=== PATIENT | male | born 1975 | race Caucasian/White ===

== ENCOUNTER 2019-07-04 10:07 | Emergency (ER) | payer SELFPAY ==
--- NOTE | 2019-07-04 10:23 | EDM.PDOC ---
ED HPI GENERAL MEDICAL PROBLEM - General Chief Complaint: General Stated Complaint: MED CLEAR Time Seen by Provider: 07/04/19 10:19 Source of Information: Reports: Patient History Limitations: Reports: No Limitations - History of Present Illness INITIAL COMMENTS - FREE TEXT/NARRATIVE: HISTORY AND PHYSICAL: History of present illness: Patient is a 44-year-old male who presents to the emergency room with law enforcement with complaints of intermittent abdominal pain, hematuria and blood in his stools. He states he has noticed these symptoms on and off for the past several months. Today while in the custody of law enforcement he stated he was having some generalized abdominal pain and mentioned his previous concerns of the blood in his urine and stool and requested to come to the emergency room for evaluation. Patient is vague with his symptoms, frequency and if there are any associated symptoms. States he hasn't noticed any blood in his urine or stool recently - but "it is probably microscopic... a little bit in there". Patient denies any fever, chills, headache, change in vision, syncope or near syncope. Denies any chest pain, back pain, shortness of breath or cough. Denies any nausea, vomiting, diarrhea, constipation or dysuria. Denies any testicular pain, redness or swelling. Patient has been eating and drinking appropriately. Denies any alcohol or drug abuse. Denies any excessive use of OTC medications. Review of systems: As per history of present illness and below otherwise all systems reviewed and negative. Past medical history: As per history of present illness and as reviewed below otherwise noncontributory. Surgical history: As per history of present illness and as reviewed below otherwise noncontributory. Social history: See social history for further information Family history: As per history of present illness and as reviewed below otherwise noncontributory. Physical exam: General: Well-developed and well-nourished 44-year-old male. Alert and oriented. Nontoxic-appearing and in no acute distress. HEENT: Atraumatic, normocephalic, pupils equal and reactive bilaterally, negative for conjunctival pallor or scleral icterus, mucous membranes moist, throat clear, neck supple, nontender, trachea midline. No drooling or trismus noted. No meningeal signs. No hot potato voice noted. Lungs: Clear to auscultation, breath sounds equal bilaterally. Heart: S1S2, regular rate and rhythm without overt murmur Abdomen: Soft, nondistended, obese, nontender. Negative for masses or costovertebral tenderness. Pelvis is stable nontender. Rectal: This was done with consent and a triple valve tester/law enforcement at bedside. No external or internal hemorrhoids are noted. Negative Hemoccult. Good rectal tone. Skin: Intact, warm, dry. No lesions or rashes noted. Extremities: Atraumatic, moves all extremities per self without difficulty or deficits. Neurovascular unremarkable. Neuro: Awake, alert, oriented. Cranial nerves II through XII unremarkable. Cerebellum unremarkable. Motor and sensory unremarkable throughout. Exam nonfocal. Notes: Exam is within normal limits; will check a UA and CBC at this time. VSS. Diagnostics are unremarkable, with exception of UTI. Patient mentions concern of his blood pressure stating he noticed it was elevated. Did encourage him to follow-up with his primary care provider for further evaluation of his intermittent chronic abdominal pain and general checkup. Patient will be released into law enforcement custody. Supportive care measures were reviewed and discussed. Voices understanding and is agreeable to plan of care. Denies any further questions or concerns at this time. Diagnostics: CBC, UA, Fecal occult stool Therapeutics: None Prescription: None Impression: Encounter for medical screening exam UTI Plan: 1. Labs were normal today, with the exception of UTI. Take antibiotic as directed. 2. You may use Tylenol and/or Ibuprofen as needed and as directed for pain management. 3. Please follow up with your primary care provider as we discussed. Return to the ED as needed as discussed. Definitive disposition and diagnosis as appropriate pending reevaluation and review of above. - Related Data Allergies Allergy/AdvReac Type Severity Reaction Status Date / Time Fish Containing Products Allergy Rash Verified 07/04/19 10:42 onion Allergy Rash Verified 07/04/19 10:42 Penicillins Allergy Rash Verified 07/04/19 10:42 peppers Allergy Rash Uncoded 07/04/19 10:42 Home Meds: Home Meds Ciprofloxacin HCl [Cipro] 500 mg PO BID 5 Days #10 tablet 07/04/19 [Rx] ED ROS GENERAL - Review of Systems Review Of Systems: Comprehensive ROS is negative, except as noted in HPI. ED EXAM, GENERAL - Physical Exam Exam: See Below (See dictation) Course - Vital Signs Last Recorded V/S: Last Vital Signs Temp 97.4 F 07/04/19 10:42 Pulse 75 07/04/19 10:42 Resp 16 07/04/19 10:42 BP 148/100 H 07/04/19 10:42 Pulse Ox 96 07/04/19 10:42 - Orders/Labs/Meds Orders: Active Orders 24 hr Category Date Time Status Fecal Occult Blood Collection [RC] ASDIRECTED Care 07/04/19 10:51 Active CULTURE URINE [RM] Stat Lab 07/04/19 10:56 Received Labs: Laboratory Tests 07/04/19 07/04/19 Range/Units 10:56 11:04 WBC 8.33 (4.0-11.0) K/uL RBC 5.31 (4.50-5.90) M/uL Hgb 17.2 H (13.0-17.0) g/dL Hct 50.8 H (38.0-50.0) % MCV 95.7 (80.0-98.0) fL MCH 32.4 H (27.0-32.0) pg MCHC 33.9 (31.0-37.0) g/dL RDW Std Deviation 50.3 (28.0-62.0) fl RDW Coeff of Scotty 14 (11.0-15.0) % Plt Count 273 (150-400) K/uL MPV 9.20 (7.40-12.00) fL Neut % (Auto) 68.3 (48.0-80.0) % Lymph % (Auto) 22.0 (16.0-40.0) % [place] % (Auto) 8.5 (0.0-15.0) % Eos % (Auto) 1.1 (0.0-7.0) % Baso % (Auto) 0.1 (0.0-1.5) % Neut # (Auto) 5.7 (1.4-5.7) K/uL Lymph # (Auto) 1.8 (0.6-2.4) K/uL [place] # (Auto) 0.7 (0.0-0.8) K/uL Eos # (Auto) 0.1 (0.0-0.7) K/uL Baso # (Auto) 0.0 (0.0-0.1) K/uL Nucleated RBC % 0.0 /100WBC Nucleated RBCs # 0 K/uL Urine Color YELLOW Urine Appearance CLEAR Urine pH 7.0 (5.0-8.0) Ur Specific [place] 1.020 (1.001-1.035) Urine Protein NEGATIVE (NEGATIVE) mg/dL Urine Glucose (UA) NEGATIVE (NEGATIVE) mg/dL Urine Ketones NEGATIVE (NEGATIVE) mg/dL Urine Occult Blood NEGATIVE (NEGATIVE) Urine Nitrite NEGATIVE (NEGATIVE) Urine Bilirubin NEGATIVE (NEGATIVE) Urine Urobilinogen 0.2 (<2.0) EU/dL Ur Leukocyte Esterase TRACE H (NEGATIVE) Urine RBC 0-2 (0-2/HPF) Urine WBC 5-10 (0-5/HPF) Ur Epithelial Cells FEW (NONE-FEW) Urine Bacteria FEW (NEGATIVE) Departure - Departure Time of Disposition: 11:12 Disposition: Home, Self-Care 01 Clinical Impression: Encounter for medical screening examination UTI (urinary tract infection) Qualifiers: Urinary tract infection type: site unspecified Hematuria presence: without hematuria Qualified Code(s): N39.0 - Urinary tract infection, site not specified - Discharge Information Prescriptions: Ciprofloxacin HCl [Cipro] 500 mg PO BID 5 Days #10 tablet Instructions: Urinary Tract Infection, Adult, [id number] Referrals: Milton Ruffin MD [Primary Care Provider] - Forms: ED Department Discharge Additional Instructions: The following information is given to patients seen in the emergency department who are being discharged to home. This information is to outline your options for follow-up care. We provide all patients seen in our emergency department with a follow-up referral. The need for follow-up, as well as the timing and circumstances, are variable depending upon the specifics of your emergency department visit. If you don't have a primary care physician on staff, we will provide you with a referral. We always advise you to contact your personal physician following an emergency department visit to inform them of the circumstance of the visit and for follow-up with them and/or the need for any referrals to a consulting specialist. The emergency department will also refer you to a specialist when appropriate. This referral assures that you have the opportunity for follow-up care with a specialist. All of these measure are taken in an effort to provide you with optimal care, which includes your follow-up. Under all circumstances we always encourage you to contact your private physician who remains a resource for coordinating your care. When calling for follow-up care, please make the office aware that this follow-up is from your recent emergency room visit. If for any reason you are refused follow-up, please contact the [facility] Emergency Department at and asked to speak to the emergency department charge nurse. [facility] [address] [place] [address] [facility] [address] [place] [address] 1. Labs were normal today, with the exception of UTI. Take antibiotic as directed. 2. You may use Tylenol and/or Ibuprofen as needed and as directed for pain management. 3. Please follow up with your primary care provider as we discussed. Return to the ED as needed as discussed. Sepsis Event Note - Focused Exam Vital Signs: Vital Signs Temp Pulse Resp BP Pulse Ox 07/04/19 10:42 97.4 F 75 16 148/100 H 96 Date Exam was Performed: 07/04/19 Time Exam was Performed: 11:15 - My Orders Last 24 Hours: My Active Orders 07/04/19 10:51 Fecal Occult Blood Collection [RC] ASDIRECTED 07/04/19 10:56 CULTURE URINE [RM] Stat - Assessment/Plan Last 24 Hours: My Active Orders 07/04/19 10:51 Fecal Occult Blood Collection [RC] ASDIRECTED 07/04/19 10:56 CULTURE URINE [RM] Stat
== END 2019-07-04 11:22 | disposition home or self-care (01) ==
LOC: MW.ED 10:07
DX: N39.0 Urinary tract infection, site not specified (principal); Z91.013 Allergy to seafood; Z88.0 Allergy status to penicillin; Z91.018 Allergy to other foods
CPT/HCPCS: 36415; 81001; 85025; 87086; 99283; 99284

== ENCOUNTER 2023-09-17 10:09 | Emergency (ER) | payer MEDICAID | END 2023-09-17 10:59 | LOC: MW.ED 10:09 | DX: I10 Essential (primary) hypertension; F17.210 Nicotine dependence, cigarettes, uncomplicated; Z91.013 Allergy to seafood; Z91.018 Allergy to other foods; Z88.0 Allergy status to penicillin; Z75.8 Other problems related to medical facilities and other health care | CPT/HCPCS: 99281; 99283 ==

== ENCOUNTER 2024-07-02 11:41 | Emergency (ER) | payer MEDICAID | END 2024-07-02 12:22 | disposition home or self-care (01) | LOC: MW.ED 11:41 | DX: Z02.89 Encounter for other administrative examinations (principal); I10 Essential (primary) hypertension; Z88.0 Allergy status to penicillin; Z91.013 Allergy to seafood; Z91.018 Allergy to other foods; Z79.899 Other long term (current) drug therapy | CPT/HCPCS: 99283 ==